=== PATIENT | female | born 1990 | race Caucasian/White ===

== ENCOUNTER → 2019-02-08 | Outpatient (CLI) | payer SELFPAY ==
--- NOTE | 2019-02-08 13:30 | Diagnostic Imaging Report ---
INDICATION: Positive rheumatoid factor. COMPARISON: None. FINDINGS: Three radiographic views of each foot were obtained. No acute fracture or dislocation is identified. Joint spaces are maintained. Note is made of mild to moderate-sized areas of periarticular erosions involving the distal fourth and fifth left metatarsals. Erosion of the distal fifth metatarsal primarily involves the lateral margins. There is a smaller erosion involving the medial margins of the distal fourth metatarsal. No distinct osseous erosions of the right foot are identified. No unexpected radiopaque foreign bodies are seen. IMPRESSION: 1. Multiple periarticular erosions involving the distal margins of the fourth and fifth metatarsals on the left. Findings can be seen with underlying rheumatoid arthritis. 2. No evidence of acute fracture or dislocation of either foot. Dictated by: Dictated on workstation # [id number]
--- NOTE | 2019-02-08 13:31 | Diagnostic Imaging Report ---
INDICATION: Positive rheumatoid factor. Arthritis. COMPARISON: None. FINDINGS: Multiple radiographic views of the bilateral hands were obtained and show no fractures, dislocations, or other acute bony abnormalities. No focal osseous erosions are identified. Joint spaces are well maintained throughout. The soft tissues appear unremarkable. No radiopaque foreign bodies are identified. IMPRESSION: Unremarkable radiographic exam of the bilateral hands. Dictated by: Dictated on workstation # [id number]
== END ==
LOC: RAD FS 11:48
PROVIDERS: ATTEND Internal Medicine Rheumatology
DX: M05.741 Rheumatoid arthritis with rheumatoid factor of right hand without organ or systems involvement (principal); M05.742 Rheumatoid arthritis with rheumatoid factor of left hand without organ or systems involvement

== ENCOUNTER 2019-06-30 07:26 | Emergency (ER) | payer SELFPAY ==
[~2019-06-30] VITALS: Ht 177.8 cm; Wt 48.7 kg
[2019-06-30 07:46] LABS: CLARITY,URINE CLEAR; COLOR,URINE YELLOW; PH,URINE 8.5 (5-9)
[2019-06-30 07:47] LABS: BILIRUBIN,URINE NEGATIVE (NEGATIVE); GLUCOSE, URINE (UA) NEGATIVE (NEGATIVE); KETONES,URINE 1+ (NEGATIVE); LEUKOCYTE ESTERASE ,URINE NEGATIVE (NEGATIVE); NITRITE,URINE NEGATIVE (NEGATIVE); PROTEIN,URINE NEGATIVE (NEGATIVE)
[2019-06-30] MEDS ORDERED: NS IV 1000 ML 1,000 ML IV STA (07:50)
--- NOTE | 2019-06-30 08:01 | ED General ---
General Chief Complaint: General Problems/Pain Stated Complaint: NAUSEA Source of Information: Patient Exam Limitations: No Limitations, Other (profound weakness) History of Present Illness Date Seen by Provider: Jun 30, 2019 Time Seen by Provider: 07:41 Initial Comments 29-year-old female presents with profound weakness over the past 3 days. She was seen [address] Young who identified that she was negative for strep mono influenza. Patient states that she has a history of rheumatoid arthritis and has been treated with Enbrel 50 mg weekly. She is aware that this would make her im munocompromised. Patient admits to fatigue chills diaphoresis tender nodes in her anterior cervical chain postnasal drip nausea. She has fevers and sweats for the past 3 days. Patient is not on test. He lives a home with her and child everyone had a mild gastroenteritis recently. Patient admits to intermittent cough that is nonproductive. She has no skin rash she has a mild headache but no increased pain with neck flexion or knee and hip flexion. Patient has given informed consent for diagnostic and therapeutic services. Patient has given informed consent for IV hydration. Given the negative urine test patient will have chest x-ray PAL. She does have some congestion in her left chest. Timing/Duration: 4-5 Days Severity: Moderate Modifying Factors: improves with Medication (Enbrel 50 mg weekly) Associated Systoms: Cough, Diaphoresis, Fever/Chills, Headaches, Malaise, Nausea/Vomiting, Weakness Allergies and Home Medications Allergies Coded Allergies: No Known Drug Allergies (Unverified , 06/30/19) Home Medications Azithromycin 250 Mg Tablet, 250 MG PO DAILY Prescribed by: BERTHA KENDALL on 06/30/19 0999 Patient Home Medication List Home Medication List Reviewed: Yes Review of Systems Review of Systems Constitutional: chills, diaphoresis, fever, malaise, weakness, weight loss EENTM: ear pain, nose congestion Respiratory: cough Cardiovascular: other (weakness and diaphoresis) Gastrointestinal: nausea, vomiting Genitourinary: no symptoms reported : No Musculoskeletal: muscle weakness Skin: no symptoms reported Psychiatric/Neurological: Weakness Hematologic/Lymphatic: Swollen Glands (anterior cervical chain) Immunological/Allergic: see HPI (she does have rheumatoid arthritis and is treated with Enbrel 50 mg weekly) Past Fxnxfol-Yeiigu-Gmyplo Hx Patient Social History Recreational Drug Use: No Recent Foreign Travel: No Past Medical History Respiratory: No (but is on Enbrel 50 mg weekly) Currently Using CPAP: No Currently Using BIPAP: No Cardiac: No Neurological: No : No Genitourinary: No Gastrointestinal: No Rheumatoid Arthritis (and currently takes Enbrel 50 mg weekly) Endocrine: No Are Your Blood Sugars Over 250: No HEENT: No Loss of Vision: Denies Hearing Impairment: Denies Psychosocial: No Integumentary: No Blood Disorders: No Adverse Reaction/Blood Tranf: No Family Medical History Reviewed Nursing Family Hx Physical Exam Vital Signs Vital Signs - First Documented 06/30/19 07:34 Temp 36.7 Pulse 93 Resp 18 B/P (MAP) 119/77 (91) Pulse Ox 100 O2 Delivery Room Air Capillary Refill : Height, Weight, BMI Height: '" Weight: lbs. oz. kg; BMI Method: General Appearance: Moderate Distress (appears dehydrated has lost 3 pounds from her THIN 110 pound frame she is 5 foot 10 inches tall now weighs 107 actual weight in the ER with clothes on) Eyes: Bilateral Eye Normal Inspection, Bilateral Eye PERRL, Bilateral Eye EOMI HEENT: PERRL/EOMI, TMs Normal, Normal ENT Inspection, Pharyngeal Erythema, Other (cobblestone pharynx) Neck: Full Range of Motion, Normal Inspection, Lymphadenopathy (R) (anterior cervical chain) Respiratory: Chest Non Tender, No Accessory Muscle Use, No Respiratory Distress, Crackles (left anterior and lateral chest), Other (chest x-ray was essentially negative. EKG shows some atrial enlargement clinical examination has inspiratory rales in the left anterior and lateral chest patient has a leukocytosis of 16,001+ ketones and has been on Enbrel 50 mg weekly. I believe that she has early pneumonia and has influenza B. Patient has agreed to azithromycin IV fluids and injection. Follow-up with continued oral azithromycin and she will follow-up with Dr. Young) Cardiovascular: Regular Rate, Rhythm, No Edema, No Gallop, No JVD, No Murmur, Normal Peripheral Pulses Gastrointestinal: Normal Bowel Sounds, No Organomegaly, No Pulsatile Mass, Non Tender, Soft Back: Normal Inspection, No CVA Tenderness, No Vertebral Tenderness Extremity: Normal Capillary Refill, Normal Inspection, Normal Range of Motion, Non Tender, No Calf Tenderness Neurologic/Psychiatric: Alert, Oriented x3, No Motor/Sensory Deficits, Normal Mood/Affect (but admits to progressive weakness), horseshoer II-XII Norm as Tested, Other (admits to progressive weakness) Skin: Normal Color, Warm/Dry Lymphatic: Other (minimal right anterior cervical chain enlargement and tenderness) Focused Exam Lactate Level 06/30/19 08:00: Lactic Acid Level 0.84 Lactic Acid Level Laboratory Tests Test 06/30/19 08:00 Lactic Acid Level 0.84 MMOL/L (0.50-2.00) Progress/Results/Core Measures Suspected Sepsis SIRS Temperature: Pulse: Respiratory Rate: Laboratory Tests 06/30/19 07:55: White Blood Count 16.6H Blood Pressure / Mean: 06/30/19 08:00: Lactic Acid Level 0.84 Laboratory Tests 06/30/19 07:55: Creatinine 0.57L, Platelet Count 294, Total Bilirubin 0.8 Results/Orders Lab Results Laboratory Tests Test 06/30/19 07:30 06/30/19 07:55 06/30/19 08:00 06/30/19 08:12 Range/Units Urine Color YELLOW Urine Clarity CLEAR Urine pH 8.5 5-9 Urine Specific [place] 1.020 1.016-1.022 Urine Protein NEGATIVE NEGATIVE Urine Glucose (UA) NEGATIVE NEGATIVE Urine Ketones 1+ H NEGATIVE Urine Nitrite NEGATIVE NEGATIVE Urine Bilirubin NEGATIVE NEGATIVE Urine Urobilinogen 0.2 < = 1.0 MG/DL Urine Leukocyte Esterase NEGATIVE NEGATIVE Urine RBC (Auto) NEGATIVE NEGATIVE Urine RBC NONE /HPF Urine WBC NONE /HPF Urine Squamous Epithelial Cells 2-5 /HPF Urine Crystals NONE /LPF Urine Bacteria NONE /HPF Urine Casts NONE /LPF Urine Mucus TRACE /LPF Urine Culture Indicated NO White Blood Count 16.6 H 4.3-11.0 10^3/uL Red Blood Count 4.49 4.35-5.85 10^6/uL Hemoglobin 12.9 11.5-16.0 G/DL Hematocrit 39 35-52 % Mean Corpuscular Volume 87 80-99 FL Mean Corpuscular Hemoglobin 29 25-34 PG Mean Corpuscular Hemoglobin Concent 33 32-36 G/DL Red Cell Distribution Width 12.1 10.0-14.5 % Platelet Count 294 130-400 10^3/uL Mean Platelet Volume 9.0 7.4-10.4 FL Neutrophils (%) (Auto) 73 42-75 % Lymphocytes (%) (Auto) 15 12-44 % Monocytes (%) (Auto) 11 0-12 % Eosinophils (%) (Auto) 0 0-10 % Basophils (%) (Auto) 0 0-10 % Neutrophils # (Auto) 12.0 H 1.8-7.8 X 10^3 Lymphocytes # (Auto) 2.5 1.0-4.0 X 10^3 Monocytes # (Auto) 1.8 H 0.0-1.0 X 10^3 Eosinophils # (Auto) 0.0 0.0-0.3 10^3/uL Basophils # (Auto) 0.1 0.0-0.1 10^3/uL Neutrophils % (Manual) 68 % Lymphocytes % (Manual) 22 % Monocytes % (Manual) 6 % Eosinophils % (Manual) 0 % Basophils % (Manual) 0 % Band Neutrophils 4 % Blood Morphology Comment NORMAL Sodium Level 136 135-145 MMOL/L Potassium Level 4.2 3.6-5.0 MMOL/L Chloride Level 99 98-107 MMOL/L Carbon Dioxide Level 22 21-32 MMOL/L Anion Gap 15 H 5-14 MMOL/L Blood Urea Nitrogen 12 7-18 MG/DL Creatinine 0.57 L 0.60-1.30 MG/DL Estimat Glomerular Filtration Rate > 60 BUN/Creatinine Ratio 21 Glucose Level 81 70-105 MG/DL Calcium Level 9.7 8.5-10.1 MG/DL Corrected Calcium 9.5 8.5-10.1 MG/DL Magnesium Level 2.2 1.6-2.4 MG/DL Total Bilirubin 0.8 0.1-1.0 MG/DL Aspartate Amino Transf (AST/SGOT) 28 5-34 U/L Alanine Aminotransferase (ALT/SGPT) 32 0-55 U/L Alkaline Phosphatase 147 H 40-136 U/L Total Protein 8.0 6.4-8.2 GM/DL Albumin 4.3 3.2-4.5 GM/DL Monoscreen NEGATIVE NEGATIVE Lactic Acid Level 0.84 0.50-2.00 MMOL/L Group A Streptococcus Screen NEGATIVE NEGATIVE Micro Results Microbiology 06/30/19 Influenza Types A,B Antigen (ROYCE) - Final, Complete My Orders Orders - BERTHA KENDALL DO Urinalysis (06/30/19 07:30) Urine Bedside (06/30/19 07:30) Chest Pa/Lat (2 View) (06/30/19 07:50) Cbc And Manual Diff (06/30/19 07:50) Comprehensive Metabolic Panel (06/30/19 07:50) Influenza A And B Antigens (06/30/19 07:50) Lactic Acid Analyzer (06/30/19 07:50) Blood Culture (06/30/19 07:50) Magnesium (06/30/19 07:50) Ns Iv 1000 Ml (Sodium Chloride 0.9%) (06/30/19 07:50) Rapid Strep A Screen (06/30/19 08:01) Duran Spencer Virus Profile (06/30/19 08:05) Ekg Tracing (06/30/19 08:05) Monotest (06/30/19 08:27) Azithromycin Injection (Zithromax Inject (06/30/19 08:49) Vital Signs/I&O 06/30/19 07:34 Temp 36.7 Pulse 93 Resp 18 B/P (MAP) 119/77 (91) Pulse Ox 100 O2 Delivery Room Air Capillary Refill : Progress Note : Time: 09:09 Progress Note As above patient is being treated empirically for early pneumonia left chest. Patient has been on Enbrel 50 mg weekly she has influenza B has shaking chills and a leukocytosis of 16.6 thousand with a left shift. Azithromycin 500 mg IV has been started and she will continue on azithromycin 250 daily for the next 6 days. Follow-up with Dr. Young Departure Impression Primary Impression: Influenza B Additional Impressions: Rheumatoid arthritis Immunocompromised Pneumonia and influenza Disposition: 01 HOME, SELF-CARE Condition: Stable Departure-Patient Inst. Referrals: MARISOL YOUNG MD (PCP/Family) Primary Care Physician Patient Instructions: Pneumonia, Adult (DC), Rheumatoid Arthritis (DC), VIRAL SYNDROME Add. Discharge Instructions: Patient has influenza B and clinical presentation of left lobe pneumonia. She is dehydrated and was given IV fluids and azithromycin 500 mg IV piggyback. Patient will continue on azithromycin 250 per day follow-up with Dr. Young. She may take acetaminophen for fever and discomfort but she must stay hydrated. Patient understands that if she becomes more ill short of breath high fevers significant lethargy and weakness she should return to the emergency room All discharge instructions reviewed with patient and/or family. Voiced understanding. Scripts Azithromycin (Azithromycin) 250 Mg Tablet 250 MG PO DAILY for 6 Days, #6 TAB 0 Refills Prov: BERTHA KENDALL DO 06/30/19 Work/School Note: Work Release Form Date Seen in the Emergency Department: Jun 30, 2019 Return to Work: Jul 04, 2019 Restrictions: Return-No Fever (24hrs) Other Restrictions Listed Below: She has influenza B and pneumonia she needs to be without fever for 24H Restrictions: Must be without fever for 24 hours before work Patient will follow-up with Dr. Young she needs to stay well hydrated she is on antibiotics she has influenza B and pneumonia Copy Copies To 1: MARISOL YOUNG MD, ANTHONY H DO Jun 30, 2019 08:01
[2019-06-30 08:11] LABS: HEMATOCRIT 39 % (35-52); HEMOGLOBIN 12.9 G/DL (11.5-16.0); LYMPHOCYTES % (AUTO) 15 % (12-44); MEAN CORPUSCULAR HEMOGLOBIN 29 PG (25-34); MEAN CORPUSCULAR HGB CONC 33 G/DL (32-36); MEAN CORPUSCULAR VOLUME 87 FL (80-99); NEUTROPHILS % (AUTO) 73 % (42-75); PLATELET COUNT 294 10^3/uL (130-400); RED CELL DISTRIBUTION WIDTH 12.1 % (10.0-14.5); WHITE BLOOD COUNT 16.6 10^3/uL (4.3-11.0)
[2019-06-30 08:12] LABS: BASOPHILS # (AUTO) 0.1 10^3/uL (0.0-0.1); BASOPHILS % (AUTO) 0 % (0-10); EOSINOPHILS % (AUTO) 0 % (0-10); LYMPHOCYTES # (AUTO) 2.5 X 10^3 (1.0-4.0); MONOCYTES # (AUTO) 1.8 X 10^3 (0.0-1.0); MONOCYTES % (AUTO) 11 % (0-12)
--- NOTE | 2019-06-30 08:17 | Diagnostic Imaging Report ---
Indication: Lymphadenopathy PA and lateral chest Heart size and pulmonary vascularity are normal. Lungs are clear. There are no effusions or pneumothoraces. IMPRESSION: Negative chest Dictated by: Dictated on workstation # [id number]
[2019-06-30 08:22] LABS: ALANINE AMINOTRANSFERASE 32 U/L (0-55); ALBUMIN 4.3 GM/DL (3.2-4.5); ALKALINE PHOSPHATASE 147 U/L (40-136); BILIRUBIN,TOTAL 0.8 MG/DL (0.1-1.0); BUN/CREATININE RATIO 21; CALCIUM 9.7 MG/DL (8.5-10.1); CARBON DIOXIDE 22 MMOL/L (21-32); CHLORIDE 99 MMOL/L (98-107); CREATININE SERUM 0.57 MG/DL (0.60-1.30); GFR ESTIMATED > 60; GLUCOSE 81 MG/DL (70-105); MAGNESIUM 2.2 MG/DL (1.6-2.4); POTASSIUM 4.2 MMOL/L (3.6-5.0); SODIUM 136 MMOL/L (135-145)
[2019-06-30] MEDS ORDERED: AZITHROMYCIN INJECTION 500 MG in NS (IVPB) 250 ML IV STA (08:49)
[2019-06-30 08:52] LABS: BAND NEUTROPHILS 4 %; BASOPHILS % (MANUAL) 0 %; EOSINOPHILS % (MANUAL) 0 %; LYMPHOCYTES % (MANUAL) 22 %; MONOCYTES % (MANUAL) 6 %; NEUTROPHILS % (MANUAL) 68 %; RBC MORPH NORMAL
[2019-06-30] MEDS ORDERED: AZIT250T12 PO (09:15)
[2019-06-30 10:00] VITALS: BP 107/69
== END 2019-06-30 10:00 | disposition home or self-care (01) ==
LOC: EDUNIT# 07:26 → ER FS 07:28
DX: J10.00 Influenza due to other identified influenza virus with unspecified type of pneumonia (principal); M06.9 Rheumatoid arthritis, unspecified; D89.9 Disorder involving the immune mechanism, unspecified
CPT/HCPCS: 36415; 71046; 80053; 81000; 83605; 83735; 84703; 85007; 85027; 86308; 86663; 86664; 86665; 87430; 87804; 93005; 96361; 96365

== ENCOUNTER 2019-09-01 17:48 | Emergency (ER) | payer SELFPAY ==
[~2019-09-01] VITALS: Ht 177.8 cm; Wt 51.5 kg
[~2019-09-01 17:48] MED LIST: AZIT250T12 PO
--- OUTSIDE RECORDS SUMMARY | 2019-09-01 17:55 | XMS REPORT ---
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 [id number] ALLERGIES Substance Reaction Event Type Date Status Claritin Unknown Drug Allergy Aug, Active ENCOUNTERS Encounter Location Date Diagnosis [facility] [id number] [address] [place] [id number] Sep, [address] [address] Aug, TRACIE I (cervical intraepithelial neoplasi a I) N87.[address] [address] Aug, Atypical squamous cells cannot exclude h igh grade squamous intraepithelial lesion on cytologic smear of cervix (ASC-H) R87.[address] [address] Aug, Well woman exam with routine gynecologic al exam Z01.[address] [address] Aug, [address] [address] Jul, [facility] [address] [id number] [address] [place] [id number] Jul, Dental examination Z01.20 [facility] [address] [id number] [address] [place] [id number] Jul, [facility] [address] [id number] [address] [place] [id number] Jun, Caries K02.9 [facility] [address] [id number] [place] [phone] Jun, Oral health maintenance stat us requiring routine preventive dental care K08.9 [facility] [address] [id number] [address] [id number] May, Caries K02.9 and Dental exam ination Z01.20 [facility] [address] [facility] [id number] [place], [place] [address] Dec, IMMUNIZATIONS No Known Immunizations SOCIAL HISTORY Never Assessed REASON FOR VISIT annual exam, Ms. Portillo denies any health concerns today, just needs her annual examination. PLAN OF CARE Activity Details Follow Up 1 Year Reason:Annual Well Wo man Examination VITAL SIGNS MEDICATIONS Medication Instructions Dosage Frequency Start Date End Date Duration S tatus Tri-Sprintec 0.18/0.215/0.25 MG-35 MCG Orally Once a day 1 tablet 24h Aug, 90 days Not-Taking RESULTS No Results PROCEDURES Procedure Date Ordered Result Body Site URINE TEST August 09, 2018 SPECIMEN HANDLING August 09, 2018 INSTRUCTIONS MEDICATIONS ADMINISTERED No Known Medications MEDICAL (GENERAL) HISTORY Type Description Date Surgical History child
--- OUTSIDE RECORDS SUMMARY | 2019-09-01 17:55 | XMS REPORT | Continuity of Care Document ---
Author Organization Unknown Address Unknown Phone Unavailable Allergies There is no data. Medications There is no data. Problems There is no data. Procedures There is no data. Results Test Result Range SUREPATH PAP RFX HPV mRNA E6/E7 - 10:40 CLINICAL INFORMATION: NRG LMP: NRG PREV. PAP: NRG PREV. BX: NRG SOURCE: Endocervix NRG STATEMENT OF ADEQUACY: NRG INTERPRETATION/RESULT: NRG PHOTOGRAPHY PROFESSOR: NRG GENERAL CATEGORIZATION: NRG COMMENT: NRG PATHOLOGIST: NRG COMMENT NRG PATHOLOGY REPORT (TISSUE PAHOLOGY) - 16:28 A SOURCE NRG A GROSS DESCRIPTION NRG A DIAGNOSIS NRG CLINICAL INFORMATION NRG PATHOLOGIST NRG CULTURE, ANAEROBIC AND AEROBIC - 9 11:16 CULTURE, ANAEROBIC BACTERIA W/GRAM STAIN SEE NOTE NRG CULTURE, AEROBIC BACTERIA SEE NOTE NRG CULTURE, VIRAL (HSV W/TYPING) - 09/08/18 11:16 SOURCE: LESION OF BUTTOX NRG HSV CULTURE: NOT ISOLATED NRG CMP - 09/20/18 15:25 GLUCOSE 84 mg/dL 65-139 UREA NITROGEN (BUN) 11 mg/dL 7-25 CREATININE 0.65 mg/dL 0.50-1.10 eGFR NON-AFR. GUINEAN 122 mL/min/1.73m2 > OR = 60 eGFR 141 mL/min/1.73m2 > OR = 60 BUN/CREATININE RATIO NOT APPLICABLE (calc) 6-22 SODIUM 136 mmol/L 135-146 POTASSIUM 3.9 mmol/L 3.5-5.3 CHLORIDE 103 mmol/L 98-110 CARBON DIOXIDE 26 mmol/L 20-32 CALCIUM 9.4 mg/dL 8.6-10.2 PROTEIN, TOTAL 7.3 g/dL 6.1-8.1 ALBUMIN 4.2 g/dL 3.6-5.1 GLOBULIN 3.1 g/dL (calc) 1.9-3.7 ALBUMIN/GLOBULIN RATIO 1.4 (calc) 1.0-2. 5 BILIRUBIN, TOTAL 0.2 mg/dL 0.2-1.2 ALKALINE PHOSPHATASE 109 U/L 33-115 AST 16 U/L 10-30 ALT 8 U/L 6-29 CBC - 09/20/18 15:25 WHITE BLOOD CELL COUNT 8.3 Thousand/uL 3 .8-10.8 RED BLOOD CELL COUNT 3.63 Million/uL 3.8 0-5.10 HEMOGLOBIN 10.9 g/dL 11.7-15.5 HEMATOCRIT 31.5 % 35.0-45.0 MCV 86.8 fL 80.0-100.0 MCH 30.0 pg 27.0-33.0 MCHC 34.6 g/dL 32.0-36.0 RDW 12.3 % 11.0-15.0 PLATELET COUNT 255 Thousand/uL 140-400 MPV 10.1 fL 7.5-12.5 ABSOLUTE NEUTROPHILS 5229 cells/uL 1500- 7800 ABSOLUTE LYMPHOCYTES 2216 cells/uL 850-3 900 ABSOLUTE MONOCYTES 681 cells/uL 200-950 ABSOLUTE EOSINOPHILS 116 cells/uL 15-500 ABSOLUTE BASOPHILS 58 cells/uL 0-200 NEUTROPHILS 63 % NRG LYMPHOCYTES 26.7 % NRG MONOCYTES 8.2 % NRG EOSINOPHILS 1.4 % NRG BASOPHILS 0.7 % NRG ESR/SED RATE - 09/20/18 15:25 SED RATE BY MODIFIED WESTERGREN 38 mm/h < OR = 20 RA (RHEUMATOID) FACTOR - 09/20/18 15:25 RHEUMATOID FACTOR 81 IU/mL <14 LILIANA - 09/20/18 15:25 LILIANA SCREEN, IFA NEGATIVE NEGATIVE VITAMIN B12 - 09/20/18 15:25 VITAMIN B12 628 pg/mL 200-1100 SUREPATH PAP RFX HPV mRNA E6/E7 - 09:01 CLINICAL INFORMATION: None given NRG LMP: NONE GIVEN NRG PREV. PAP: NONE GIVEN NRG PREV. BX: NONE GIVEN NRG SOURCE: Endocervix NRG STATEMENT OF ADEQUACY: NR INTERPRETATION/RESULT: [facility] PHOTOGRAPHY PROFESSOR: CAITLIN PATHOLOGIST: NR COMMENT NRG GC/CHLAMYDIA (SWAB OR URINE)-RAPID - 09:28 CHLAMYDIA TRACHOMATIS RNA, TMA NOT DETECTED NOT DETECTED NEISSERIA GONORRHOEAE RNA, TMA NOT DETECTED NOT DETECTED COMMENT NRG CMP - 12/13/18 14:26 GLUCOSE 79 mg/dL 65-139 UREA NITROGEN (BUN) 17 mg/dL 7-25 CREATININE 0.58 mg/dL 0.50-1.10 eGFR NON-AFR. GUINEAN 126 mL/min/1.73m2 > OR = 60 eGFR 146 mL/min/1.73m2 > OR = 60 BUN/CREATININE RATIO NOT APPLICABLE (calc) 6-22 SODIUM 140 mmol/L 135-146 POTASSIUM 4.1 mmol/L 3.5-5.3 CHLORIDE 105 mmol/L 98-110 CARBON DIOXIDE 26 mmol/L 20-32 CALCIUM 9.2 mg/dL 8.6-10.2 PROTEIN, TOTAL 7.0 g/dL 6.1-8.1 ALBUMIN 4.3 g/dL 3.6-5.1 GLOBULIN 2.7 g/dL (calc) 1.9-3.7 ALBUMIN/GLOBULIN RATIO 1.6 (calc) 1.0-2. 5 BILIRUBIN, TOTAL 0.4 mg/dL 0.2-1.2 ALKALINE PHOSPHATASE 91 U/L 33-115 AST 16 U/L 10-30 ALT 7 U/L 6-29 CBC - 12/13/18 14:26 WHITE BLOOD CELL COUNT 7.2 Thousand/uL 3 .8-10.8 RED BLOOD CELL COUNT 3.73 Million/uL 3.8 0-5.10 HEMOGLOBIN 10.8 g/dL 11.7-15.5 HEMATOCRIT 32.6 % 35.0-45.0 MCV 87.4 fL 80.0-100.0 MCH 29.0 pg 27.0-33.0 MCHC 33.1 g/dL 32.0-36.0 RDW 12.8 % 11.0-15.0 PLATELET COUNT 253 Thousand/uL 140-400 MPV 10.1 fL 7.5-12.5 ABSOLUTE NEUTROPHILS 4349 cells/uL 1500- 7800 ABSOLUTE LYMPHOCYTES 2102 cells/uL 850-3 900 ABSOLUTE MONOCYTES 641 cells/uL 200-950 ABSOLUTE EOSINOPHILS 58 cells/uL 15-500 ABSOLUTE BASOPHILS 50 cells/uL 0-200 NEUTROPHILS 60.4 % NRG LYMPHOCYTES 29.2 % NRG MONOCYTES 8.9 % NRG EOSINOPHILS 0.8 % NRG BASOPHILS 0.7 % NRG CMP - 01/12/19 15:05 GLUCOSE 83 mg/dL 65-99 UREA NITROGEN (BUN) 15 mg/dL 7-25 CREATININE 0.59 mg/dL 0.50-1.10 eGFR NON-AFR. GUINEAN 126 mL/min/1.73m2 > OR = 60 eGFR 146 mL/min/1.73m2 > OR = 60 BUN/CREATININE RATIO NOT APPLICABLE (calc) 6-22 SODIUM 137 mmol/L 135-146 POTASSIUM 3.8 mmol/L 3.5-5.3 CHLORIDE 103 mmol/L 98-110 CARBON DIOXIDE 26 mmol/L 20-32 CALCIUM 9.6 mg/dL 8.6-10.2 PROTEIN, TOTAL 7.4 g/dL 6.1-8.1 ALBUMIN 4.3 g/dL 3.6-5.1 GLOBULIN 3.1 g/dL (calc) 1.9-3.7 ALBUMIN/GLOBULIN RATIO 1.4 (calc) 1.0-2. 5 BILIRUBIN, TOTAL 0.3 mg/dL 0.2-1.2 ALKALINE PHOSPHATASE 88 U/L 33-115 AST 16 U/L 10-30 ALT 8 U/L 6-29 HEP C ANTIBODY - 02/08/19 11:30 HEPATITIS C ANTIBODY NON-REACTIVE NON-R EACTIVE SIGNAL TO CUT-OFF 0.27 <1.00 QUANTIFERON(R)-TB GOLD PLUS, 1 TUBE - 11:30 QUANTIFERON(R)-TB GOLD PLUS, 1 TUBE NEGATIVE NEGATIVE NIL 0.02 IU/mL NRG MITOGEN-NIL 9.91 IU/mL NRG TB1-NIL 0.01 IU/mL NRG TB2-NIL 0.01 IU/mL NRG ESR/SED RATE - 03/13/19 14:28 SED RATE BY MODIFIED WESTERGREN 17 mm/h < OR = 20 CRP - 03/13/19 14:28 C-REACTIVE PROTEIN 2.8 mg/L <8.0 ESR/SED RATE - 08/02/19 15:23 SED RATE BY MODIFIED WESTERGREN 9 mm/h < OR = 20 CRP - 08/02/19 15:23 C-REACTIVE PROTEIN 1.8 mg/L <8.0 Encounters ACCT No. Visit Date/Time Discharge Status Pt. Type Provider Facility Loc./Unit Complaint [id number] 08/02/2019 15:00:00 08/02/2019 23:59:5 9 [facility] Out[facility] [id number] 08/02/2019 15:00:00 Document Registration [id number] 03/13/2019 14:30:00 Document Registration [id number] 02/08/2019 14:00:00 Document Registration [id number] 01/12/2019 15:00:00 Document Registration [id number] 12/13/2018 14:30:00 Document Registration [id number] 11/30/2018 09:00:00 Document Registration [id number] 11/16/2018 09:15:00 Document Registration [id number] 09/20/2018 15:00:00 Document Registration [id number] 09/08/2018 09:20:00 Document Registration [id number] 08/18/2018 15:45:00 Document Registration [id number] 08/09/2018 09:45:00 Document Registration
--- OUTSIDE RECORDS SUMMARY | 2019-09-01 17:55 | XMS REPORT ---
Author Author Ashia MONTAÑO Organization [facility] Address [address] [place] [address] Care Team Providers Care Used Car Renovator Name Role Phone PINA MONTAÑO Unavailable PROBLEMS Type Condition ICD9-CM Code [id number] Code Onset Dates Condition S tatus SNOMED Code Problem Atypical squamous cells of u ndetermined significance on cytologic smear of cervix (ASC-US) R87.610 Nov, Active 389065925 Problem Well female exam with routine gynecological exam Z01.419 Apr, Active [id number] Problem Moderate single current episode of major depressive di sorder F32.1 Nov, Active 54596265 Problem Rheumatoid arthritis of left hand without organ or system involvement with positive rheumatoid factor M05.742 Active 040255110 Problem Dental caries K02.9 Mar, Active 809 50289 Problem Rheumatoid arthritis with rh eumatoid factor of right hand without organ or systems involvement M05.741 Active 39187 7001 Problem Viral gastroenteritis A08.4 Mar, Activ e 756291425 Problem TRACIE I (cervical intraepithelial neoplasia I) N87.0 Active 610975444 Problem Moderate episode of recurrent major depressive disorder F33.1 Active 231398288 Problem Rheumatoid arthritis involvi ng multiple sites, unspecified rheumatoid factor presence M06.9 Active 974678673 Problem Seasonal allergic rhinitis due to other allergic trigger J30.89 Active 245237062 ALLERGIES Substance Reaction Event Type Date Status Claritin Unknown Drug Allergy Aug, Active ENCOUNTERS Encounter Location Date Diagnosis [address] [address] Jan, Rheumatoid arthritis with rheumatoid fac tor of right hand without organ or systems involvement M05.[address] [address] Jan, Rheumatoid arthritis with rheumatoid fac tor of right hand without organ or systems involvement M05.[address] [address] Dec, Rheumatoid arthritis with rheumatoid fac tor of right hand without organ or systems involvement M05.[address] [address] Dec, Rheumatoid arthritis with rheumatoid fac tor of right hand without organ or systems involvement M05.741 [facility] [address] [facility] [id number] [address] [place] [phone] Dec, Dental examination Z01.[address] [address] Nov, Vaginal itching N89.8 and Trichomonas va ginitis A59.[address] [address] Nov, Encounter for repeat Papanicolaou smear of cervix Z12.[address] [address] Nov, Rheumatoid arthritis with rheumatoid fac tor of right hand without organ or systems involvement M05.741 and Rheumatoid arthritis of left hand without organ or system involvement with positive rheumatoid factor M05.742 [facility] [address] [place] [id number] [address] [place] [id number] Nov, Caries K02.9 [facility] [address] [place] [address] October, Seasonal allergic rhinitis due to other allergic trigger J30.89 [facility] [address] [facility] [id number] [address] [place] [id number] October, Caries K02.[address] [address] Sep, Rheumatoid arthritis involving multiple sites, unspecified rheumatoid factor presence M06.9 [facility] [address] [id number] [address] [place] [phone] Sep, Arthralgia, unspecified join t M25.[address] [address] Sep, Arthralgia, unspecified joint M25.50 and Moderate episode of recurrent major depressive disorder F33.1 [facility] [address] [id number] [address] [place] [address] [phone] Sep, Caries K02.[address] [address] Sep, Abscess L02.[address] [address] Sep, Abscess L02.[address] [address] Aug, TRACIE I (cervical intraepithelial neoplasi a I) N87.[address] [address] Aug, Atypical squamous cells cannot exclude h igh grade squamous intraepithelial lesion on cytologic smear of cervix (ASC-H) R87.[address] [address] Aug, Well woman exam with routine gynecologic al exam Z01.[address] [address] Aug, [address] [address] Jul, [facility] [address] [facility] [id number] [address] [place] [phone] Jul, Dental examination Z01.20 [facility] [address] [id number] [address] [place] [phone] Jul, [facility] [address] [id number] [address] [place] [id number] Jun, Caries K02.9 [facility] [address] [id number] [address] [place] [phone] Jun, Oral health maintenance stat us requiring routine preventive dental care K08.9 [facility] [address] [id number] [address] [place] [phone] May, [facility] [address] [id number] [address] [place] [phone] May, Caries K02.9 and Dental exam ination Z01.20 [facility] [address] [facility] [id number] [address] [address] Mar, [facility] [address] [facility] [id number] [address] [place] [phone] Aug, [facility] [address] [facility] [id number] [address] [place] [phone] Dec, IMMUNIZATIONS No Known Immunizations SOCIAL HISTORY Never Assessed REASON FOR VISIT Cryo, Ms. Portillo presents to our office for a scheduled Cryotherapy to her cervi x secondary to TRACIE 1 on her Colposcopic biopsies. PLAN OF CARE Activity Details Follow Up 3 Months Reason:Repeat Pap S mear VITAL SIGNS MEDICATIONS Medication Instructions Dosage Frequency Start Date End Date Duration S tatus Tri-Sprintec 0.18/0.215/0.25 MG-35 MCG Orally Once a day 1 tablet 24h Aug, 90 days Unknown RESULTS No Results PROCEDURES Procedure Date Ordered Result Body Site CRYOCAUTERY OF CERVIX August 25, 2018 INSTRUCTIONS MEDICATIONS ADMINISTERED No Known Medications MEDICAL (GENERAL) HISTORY Type Description Date Medical History anxiety Medical History depression Medical History rheumatoid arthritis Surgical History tonsils removed as a child Hospitalization History child Hospitalization History during for dehydration
--- OUTSIDE RECORDS SUMMARY | 2019-09-01 17:55 | XMS REPORT ---
Author Author Ashia MONTAÑO Organization [facility] Address [address] [place] [address] Care Team Providers [facility] Representative Name Role Phone PINA MONTAÑO Unavailable PROBLEMS Type Condition ICD9-CM Code [id number] Code Onset Dates Condition S tatus SNOMED Code Problem Atypical squamous cells of u ndetermined significance on cytologic smear of cervix (ASC-US) R87.610 Nov, Active 355197113 Problem Well female exam with routine gynecological exam Z01.419 Apr, Active 628073568362298 Problem Moderate single current episode of major depressive di sorder F32.1 Nov, Active 92070968 Problem Rheumatoid arthritis of left hand without organ or system involvement with positive rheumatoid factor M05.742 Active 451763739 Problem Dental caries K02.9 Mar, Active 809 26496 Problem Rheumatoid arthritis with rh eumatoid factor of right hand without organ or systems involvement M05.741 Active 25274 7001 Problem Viral gastroenteritis A08.4 Mar, Activ e 062232103 Problem TRACIE I (cervical intraepithelial neoplasia I) N87.0 Active 053093966 Problem Moderate episode of recurrent major depressive disorder F33.1 Active 864114424 Problem Rheumatoid arthritis involvi ng multiple sites, unspecified rheumatoid factor presence M06.9 Active 270002286 Problem Seasonal allergic rhinitis due to other allergic trigger J30.89 Active 374161522 ALLERGIES Substance Reaction Event Type Date Status Claritin Unknown Drug Allergy Aug, Active ENCOUNTERS Encounter Location Date Diagnosis [address] [address] Dec, [facility] [address] [facility] [id number] [address] [place] [id number] Dec, [address] [address] 26 [place], 2019 Vaginal itching N89.8 and Trichomonas va ginitis A59.[address] [address] Nov, Encounter for repeat Papanicolaou smear of cervix Z12.[address] [address] Nov, Rheumatoid arthritis with rheumatoid fac tor of right hand without organ or systems involvement M05.741 and Rheumatoid arthritis of left hand without organ or system involvement with positive rheumatoid factor M05.742 [facility] [address] [facility] [id number] [address] [id number] Nov, Caries K02.9 [facility] [address] [place] [address] October, Seasonal allergic rhinitis due to other allergic trigger J30.89 [facility] [address] [facility] [id number] [address] [place] [id number] October, Caries K02.[address] [address] Sep, Rheumatoid arthritis involving multiple sites, unspecified rheumatoid factor presence M06.9 [facility] [address] [id number] [place] [address] Sep, Arthralgia, unspecified join t M25.[address] [address] Sep, Arthralgia, unspecified joint M25.50 and Moderate episode of recurrent major depressive disorder F33.1 [facility] [address] [facility] [id number] [address] [place] [phone] Sep, Caries K02.[address] [address] Sep, Abscess L02.[address] [address] Sep, Abscess L02.[address] [address] Aug, TRACIE I (cervical intraepithelial neoplasi a I) N87.[address] [address] Aug, Atypical squamous cells cannot exclude h igh grade squamous intraepithelial lesion on cytologic smear of cervix (ASC-H) R87.[address] [address] Aug, Well woman exam with routine gynecologic al exam Z01.[address] [place] [address] Aug, [address] [address] Jul, [facility] [address] [id number] [address] [place] [phone] Jul, Dental examination Z01.20 [facility] [address] [id number] [address] [place] [phone] Jul, [facility] [address] [id number] [address] [place] [id number] Jun, Caries K02.9 [facility] [address] [id number] [address] [place] [phone] Jun, Oral health maintenance stat us requiring routine preventive dental care K08.9 [facility] [address] [id number] [address] [place] [phone] May, [facility] [address] [id number] [address] [place] [phone] May, Caries K02.9 and Dental exam ination Z01.20 [facility] [address] [id number] [address] [place] [phone] Mar, [facility] [address] [id number] [address] [place] [phone] Aug, [facility] [address] [id number] [address] [place] [phone] Dec, IMMUNIZATIONS No Known Immunizations SOCIAL HISTORY Never Assessed REASON FOR VISIT Colposcopy, Ms. Portillo presents to our office for her scheduled Colposcopy for a n Abnormal Pap Smear (LGSIL). She denies any other health concerns today. PLAN OF CARE Activity Details Follow Up 1 Week Reason:Test results Future/Pending Procedure COLPOSCOPY VITAL SIGNS MEDICATIONS Medication Instructions Dosage Frequency Start Date End Date Duration S marco Tri-Sprintec 0.18/0.215/0.25 MG-35 MCG Orally Once a day 1 tablet 24h Aug, 90 days Unknown RESULTS No Results PROCEDURES Procedure Date Ordered Result Body Site BX/CURETT OF CERVIX W/SCOPE August 18, 2018 EXPLORATION OF VAGINA August 18, 2018 EXAM OF CERVIX W/SCOPE August 18, 2018 INSTRUCTIONS MEDICATIONS ADMINISTERED No Known Medications MEDICAL (GENERAL) HISTORY Type Description Date Medical History anxiety Medical History depression Medical History rheumatoid arthritis Surgical History tonsils removed as a child Hospitalization History child Hospitalization History during for dehydration
[2019-09-01] MEDS ORDERED: NS IV 1000 ML 1,000 ML IV SCH (18:15)
[2019-09-01] MEDS ORDERED: HYDROmorphone 2 MG/ML VIAL (DILAUDID) IV ONE ×2 (18:15→20:00)
--- NOTE | 2019-09-01 18:16 | ED Abdominal Pain ---
General Chief Complaint: Abdominal/GI Problems Stated Complaint: RT FLANK PAIN Source of Information: Patient Exam Limitations: No Limitations (but has severe pain) History of Present Illness Date Seen by Provider: Sep 01, 2019 Time Seen by Provider: 18:01 Initial Comments 29-year-old female presents for evaluation of severe right flank pain. Patient states the pain is been getting worse over the past day. Is now intense and severe. She has never had kidney stones in the past denies any trauma. Patient does have rheumatoid arthritis and has been on Humira for the past 7 years. She has felt nauseated because of the pain. She denies any history of cardiovascular pulmonary renal or GI disease. Patient has given informed consent for diagnostic and therapeutic services. Her last menstrual period was one week ago she is not using any contraception but just completed her menses. Patient understands CT scan of the abdomen and pelvis is being done after test was completed. Patient has not had any significant travel and has been inside the [facility] for the past 2 weeks. She has not been around anyone who she knows is sick and has been a consistent effort to socially distance herself and has not been around anyone who has been ill. Timing/Duration: 12 Hours (gradual onset with intense pain at this time) Severity/Quality: Severe, Sharp, Stabbing Location: RLQ, Flank Radiation: RLQ, Flank Activities at Onset: Activity Modifying Factors: Improves With Breathing, Improves With Coughing, Improves With Movement Associated Symptoms: Back Pain, Nausea/Vomiting Allergies and Home Medications Allergies Coded Allergies: No Known Drug Allergies (Unverified , 06/30/19) Patient Home Medication List Home Medication List Reviewed: Yes Review of Systems Review of Systems Constitutional: see HPI, malaise, weakness, other (severe right flank pain) EENTM: No Symptoms Reported Respiratory: Other (wincing pain makes it difficult to breathe Deeply) Gastrointestinal: Abdominal Pain, Nausea, Vomiting, Other (severe right flank pain) Genitourinary: See HPI, Flank Pain, Other (just completed menses this week) Musculoskeletal: back pain, joint pain (history of rheumatoid arthritis), joint swelling (history of rheumatoid arthritis), muscle stiffness Skin: no symptoms reported Psychiatric/Neurological: Anxiety, Tremors (from severe spasms of pain) Endocrine: No Symptoms Reported Hematologic/Lymphatic: No Symptoms Reported Past Quymopo-Hqwzln-Jyhfqv Hx Past Med/Social Hx: Reviewed Nursing Past Med/Soc Hx Patient Social History 2nd Hand Smoke Exposure: No Recent Foreign Travel: No Contact w/Someone Who Travel: No Recent Hopitalizations: No Seasonal Allergies Seasonal Allergies: No Past Medical History Surgeries: Yes Tonsillectomy Respiratory: No (but is on Enbrel 50 mg weekly) Currently Using CPAP: No Currently Using BIPAP: No Cardiac: No Neurological: No Genitourinary: No Gastrointestinal: No Musculoskeletal: Yes Rheumatoid Arthritis Endocrine: No HEENT: No Loss of Vision: Denies Hearing Impairment: Denies Cancer: No Psychosocial: No Integumentary: No Blood Disorders: No Adverse Reaction/Blood Tranf: No Physical Exam Vital Signs Vital Signs - First Documented 09/01/19 17:50 Temp 36.0 Pulse 80 Resp 20 B/P (MAP) 122/81 (95) Pulse Ox 100 O2 Delivery Room Air Capillary Refill : Less than 2 seconds Height/Weight/BMI Height: '" Weight: lbs. oz. kg; 15.00 BMI Method: General Appearance: WD/WN (but very thin), severe distress, thin HEENT: PERRL/EOMI, normal ENT inspection, pharynx normal Neck: non-tender, full range of motion, supple, normal inspection Respiratory: chest non-tender, lungs clear, normal breath sounds, no respiratory distress, no accessory muscle use Cardiovascular: regular rate, rhythm, no edema, no gallop, no JVD, no murmur Peripheral Pulses: 2+ Carotid (R), 2+ Carotid (L) Gastrointestinal: soft, no organomegaly, no pulsatile mass, guarding (right flank), tenderness (right flank), other (pain consistent with right ureteral lithiasis) Extremities: normal range of motion, non-tender, normal inspection, no pedal edema, no calf tenderness, normal capillary refill, other (history of rheumatoid arthritis on Humira) Back: CVA tenderness (R) (severe in the right flank no history of trauma) Neurologic/Psychiatric: box blank machine feeder II-XII nml as tested, no motor/sensory deficits, al ert, normal mood/affect, oriented x 3 Skin: normal color, warm/dry Lymphatic: no adenopathy Focused Exam Lactate Level 09/01/19 18:30: Lactic Acid Level 1.06 Lactic Acid Level Laboratory Tests Test 09/01/19 18:30 Lactic Acid Level 1.06 MMOL/L (0.50-2.00) Progress/Results/Core Measures Results/Orders Lab Results Laboratory Tests Test 09/01/19 17:50 09/01/19 18:10 09/01/19 18:30 09/01/19 18:45 Range/Units Urine Test NEGATIVE NEGATIVE White Blood Count 9.1 4.3-11.0 10^3/uL Red Blood Count 4.30 L 4.35-5.85 10^6/uL Hemoglobin 12.5 11.5-16.0 G/DL Hematocrit 37 35-52 % Mean Corpuscular Volume 87 80-99 FL Mean Corpuscular Hemoglobin 29 25-34 PG Mean Corpuscular Hemoglobin Concent 34 32-36 G/DL Red Cell Distribution Width 12.6 10.0-14.5 % Platelet Count 231 130-400 10^3/uL Mean Platelet Volume 9.9 7.4-10.4 FL Neutrophils (%) (Auto) 66 42-75 % Lymphocytes (%) (Auto) 25 12-44 % Monocytes (%) (Auto) 7 0-12 % Eosinophils (%) (Auto) 1 0-10 % Basophils (%) (Auto) 1 0-10 % Neutrophils # (Auto) 6.0 1.8-7.8 X 10^3 Lymphocytes # (Auto) 2.3 1.0-4.0 X 10^3 Monocytes # (Auto) 0.7 0.0-1.0 X 10^3 Eosinophils # (Auto) 0.1 0.0-0.3 10^3/uL Basophils # (Auto) 0.1 0.0-0.1 10^3/uL Neutrophils % (Manual) 60 % Lymphocytes % (Manual) 31 % Monocytes % (Manual) 5 % Eosinophils % (Manual) 3 % Basophils % (Manual) 0 % Band Neutrophils 1 % Blood Morphology Comment NORMAL Sodium Level 141 135-145 MMOL/L Potassium Level 3.3 L 3.6-5.0 MMOL/L Chloride Level 103 98-107 MMOL/L Carbon Dioxide Level 23 21-32 MMOL/L Anion Gap 15 H 5-14 MMOL/L Blood Urea Nitrogen 10 7-18 MG/DL Creatinine 0.68 0.60-1.30 MG/DL Estimat Glomerular Filtration Rate > 60 BUN/Creatinine Ratio 15 Glucose Level 105 70-105 MG/DL Calcium Level 9.5 8.5-10.1 MG/DL Corrected Calcium 8.5-10.1 MG/DL Total Bilirubin 0.3 0.1-1.0 MG/DL Aspartate Amino Transf (AST/SGOT) 21 5-34 U/L Alanine Aminotransferase (ALT/SGPT) 13 0-55 U/L Alkaline Phosphatase 105 40-136 U/L Total Protein 7.6 6.4-8.2 GM/DL Albumin 4.6 H 3.2-4.5 GM/DL Lactic Acid Level 1.06 0.50-2.00 MMOL/L Urine Color YELLOW Urine Clarity CLEAR Urine pH 6.0 5-9 Urine Specific Cleves 1.020 1.016-1.022 Urine Protein 3+ H NEGATIVE Urine Glucose (UA) NEGATIVE NEGATIVE Urine Ketones NEGATIVE NEGATIVE Urine Nitrite NEGATIVE NEGATIVE Urine Bilirubin NEGATIVE NEGATIVE Urine Urobilinogen 0.2 < = 1.0 MG/DL Urine Leukocyte Esterase NEGATIVE NEGATIVE Urine RBC (Auto) TRACE H NEGATIVE Urine RBC 0-2 /HPF Urine WBC NONE /HPF Urine Squamous Epithelial Cells 5-10 /HPF Urine Crystals NONE /LPF Urine Bacteria FEW H /HPF Urine Casts NONE /LPF Urine Mucus NEGATIVE /LPF Urine Culture Indicated NO My Orders Orders - BERTHA KENDALL DO Cbc And Manual Diff (09/01/19 18:08) Comprehensive Metabolic Panel (09/01/19 18:08) Lactic Acid Analyzer (09/01/19 18:08) Urinalysis (09/01/19 18:08) Hcg,Qualitative Urine (09/01/19 18:08) Peripheral Iv Line Care 00,04,08,12,16,20 (09/01/19 18:08) Ns Iv 1000 Ml (Sodium Chloride 0.9%) (09/01/19 18:15) Ct Abd/Pelvis Wo(Kidney Stone) (09/01/19 18:08) Hydromorphone Injection (Dilaudid Inject (09/01/19 18:15) Medications Given in ED Current Medications Medications Dose Ordered Sig/Martinez Route Start Time Stop Time Status Last Admin Dose Admin Hydromorphone HCl 0.5 mg ONCE ONCE IV 09/01/19 18:15 09/01/19 18:16 DC 09/01/19 18:34 0.5 MG Vital Signs/I&O 09/01/19 09/01/19 17:50 18:34 Temp 36.0 36.0 Pulse 80 Resp 20 B/P (MAP) 122/81 (95) Pulse Ox 100 O2 Delivery Room Air Progress Progress Note : Time: 19:[address] scan reveals a obstructing stone 6 mm in the right ureteral vesicular junction with a right hydronephrosis. Patient also has nonobstructing stones in both her left and right urinary tree. CT scan results are as follows: FINDINGS: The heart is unremarkable. The included lung bases are clear. A calculus is seen in the right UVJ measuring 0.6 cm with associated moderate right-sided hydroureteronephrosis. Multiple nonobstructing calculi are seen bilaterally, the largest measuring 2 mm on the right and 3 mm on the left. No hydronephrosis is seen on the left. The urinary bladder is nondistended. The liver, spleen, pancreas, and adrenal glands have a normal appearance. There is no pathologically enlarged mesenteric or retroperitoneal adenopathy. The bowel loops are nondilated. The appendix is visualized in the right lower quadrant and has a normal appearance. There is no free fluid or free air. The osseous structures are age-appropriate. There is no free air, loculated collection, or adenopathy in the pelvis. IMPRESSION: 1. Obstructing calculus in the right UVJ measuring 0.6 cm with associated moderate right-sided hydroureteronephrosis. 2. Bilateral nonobstructing calculi. Patient is aware that she will need to be on analgesics hydration and follow-up with urology. I recommended she see a urologist next week continue to hydrate and strain all urine to identify stone. She should also be in contact with her warehouse checker in regard to her continued use of Humira. Departure Impression Primary Impression: Calculus of kidney Additional Impressions: Abdominal pain Dehydration Disposition: 01 HOME, SELF-CARE Condition: Improved Departure-Patient Inst. Decision time for Depature: 19:40 Referrals: MARISOL YOUNG MD (PCP/Family) Primary Care Physician Patient Instructions: Renal Colic (DC), Kidney Stones in Adults, Dehydration, Adult (DC) Add. Discharge Instructions: Patient has a obstructing right ureteral lithiasis with a hydronephrosis. The stone is at the ureteral vesicular junction patient is to push fluids and analgesic medications have been prescribed. She was given half a milligram of hydromorphone and this will be repeated before going home and oral hydrocodone for pain. Patient will follow up with urology next week and also with Dr. Young All discharge instructions reviewed with patient and/or family. Voiced understanding. Scripts Hydrocodone/Acetaminophen (Hydrocodone-Acetamin 5-325 mg) 1 Each Tablet 1 EACH PO Q6H for Pain for 5 Days, #20 TAB Prov: BERTHA KENDALL DO 09/01/19 Copy Copies To 1: MARISOL YOUNG MD, ANTHONY H DO Sep 01, 2019 18:16
[2019-09-01 18:25] LABS: HEMATOCRIT 37 % (35-52); HEMOGLOBIN 12.5 G/DL (11.5-16.0); MEAN CORPUSCULAR HEMOGLOBIN 29 PG (25-34); WHITE BLOOD COUNT 9.1 10^3/uL (4.3-11.0)
[2019-09-01 18:26] LABS: BASOPHILS # (AUTO) 0.1 10^3/uL (0.0-0.1); BASOPHILS % (AUTO) 1 % (0-10); EOSINOPHILS # (AUTO) 0.1 10^3/uL (0.0-0.3); EOSINOPHILS % (AUTO) 1 % (0-10); LYMPHOCYTES # (AUTO) 2.3 X 10^3 (1.0-4.0); LYMPHOCYTES % (AUTO) 25 % (12-44); MEAN CORPUSCULAR HGB CONC 34 G/DL (32-36); MEAN CORPUSCULAR VOLUME 87 FL (80-99); MEAN PLATELET VOLUME 9.9 FL (7.4-10.4); MONOCYTES # (AUTO) 0.7 X 10^3 (0.0-1.0); MONOCYTES % (AUTO) 7 % (0-12); NEUTROPHILS % (AUTO) 66 % (42-75); PLATELET COUNT 231 10^3/uL (130-400); RED CELL DISTRIBUTION WIDTH 12.6 % (10.0-14.5)
[2019-09-01] MEDS ORDERED: Enbrel (18:49)
[2019-09-01 19:03] LABS: BACTERIA,URINE FEW /HPF; BILIRUBIN,URINE NEGATIVE (NEGATIVE); CLARITY,URINE CLEAR; COLOR,URINE YELLOW; GLUCOSE, URINE (UA) NEGATIVE (NEGATIVE); KETONES,URINE NEGATIVE (NEGATIVE); LEUKOCYTE ESTERASE ,URINE NEGATIVE (NEGATIVE); NITRITE,URINE NEGATIVE (NEGATIVE); PROTEIN,URINE 3+ (NEGATIVE); RBC,URINE 0-2 /HPF
[2019-09-01 19:04] LABS: ALANINE AMINOTRANSFERASE 13 U/L (0-55); ALKALINE PHOSPHATASE 105 U/L (40-136); BAND NEUTROPHILS 1 %; BASOPHILS % (MANUAL) 0 %; BILIRUBIN,TOTAL 0.3 MG/DL (0.1-1.0); BUN/CREATININE RATIO 15; CALCIUM 9.5 MG/DL (8.5-10.1); CARBON DIOXIDE 23 MMOL/L (21-32); CHLORIDE 103 MMOL/L (98-107); CREATININE SERUM 0.68 MG/DL (0.60-1.30); EOSINOPHILS % (MANUAL) 3 %; GFR ESTIMATED > 60; GLUCOSE 105 MG/DL (70-105); LYMPHOCYTES % (MANUAL) 31 %; MONOCYTES % (MANUAL) 5 %; NEUTROPHILS % (MANUAL) 60 %; POTASSIUM 3.3 MMOL/L (3.6-5.0); RBC MORPH NORMAL; SODIUM 141 MMOL/L (135-145)
[2019-09-01 19:05] LABS: ALBUMIN 4.6 GM/DL (3.2-4.5); TOTAL PROTEIN 7.6 GM/DL (6.4-8.2)
--- NOTE | 2019-09-01 19:15 | Diagnostic Imaging Report ---
PROCEDURE: CT urinary tract, rule out kidney stone. TECHNIQUE: Multiple contiguous axial images were obtained through the abdomen and pelvis without the use of intravenous contrast. Auto Exposure Controls were utilized during the CT exam to meet ALARA standards for radiation dose reduction. INDICATION: Right flank pain for one day. Evaluate for renal stones. COMPARISON: None. FINDINGS: The heart is unremarkable. The included lung bases are clear. A calculus is seen in the right UVJ measuring 0.6 cm with associated moderate right-sided hydroureteronephrosis. Multiple nonobstructing calculi are seen bilaterally, the largest measuring 2 mm on the right and 3 mm on the left. No hydronephrosis is seen on the left. The urinary bladder is nondistended. The liver, spleen, pancreas, and adrenal glands have a normal appearance. There is no pathologically enlarged mesenteric or retroperitoneal adenopathy. The bowel loops are nondilated. The appendix is visualized in the right lower quadrant and has a normal appearance. There is no free fluid or free air. The osseous structures are age-appropriate. There is no free air, loculated collection, or adenopathy in the pelvis. IMPRESSION: 1. Obstructing calculus in the right UVJ measuring 0.6 cm with associated moderate right-sided hydroureteronephrosis. 2. Bilateral nonobstructing calculi. Dictated by: Dictated on workstation # [id number]
[2019-09-01] MEDS ORDERED: HYDR-83 PO (19:44)
[2019-09-01 19:56] VITALS: BP 105/63
== END 2019-09-01 19:56 | disposition home or self-care (01) ==
LOC: EDUNIT# 17:48 → ER FS 17:50
DX: N13.6 Pyonephrosis (principal); E86.0 Dehydration
CPT/HCPCS: 36415; 74176; 80053; 81000; 83605; 84703; 85007; 85027; 96361; 96374; 96375

== ENCOUNTER → 2020-12-26 | Outpatient (CLI) | payer BC ==
[~2020-12-26] MED LIST changes: +ACHD5005 PO; +Enbrel
--- NOTE | 2020-12-26 10:54 | Diagnostic Imaging Report ---
INDICATION: survey. No pathological finding at the anatomical survey is revealed, however lie limits interrogation of the ventricular outflow tracts. The nondilated cervix measures a normal 6 cm in length and the caudal tip of the anterior placenta is 3.1 cm separable from the closed internal os. Positioning was variable during the exam including a transversely oriented with the head to the maternal left. The heart rate 144 bpm was regular. Anterior placenta appeared normal with no abruption or previa and there is a normal volume of amniotic fluid. Biometric measurements correlate with an age 21 weeks 0 days for sonographic date of delivery 05/08/2021 the LMP percentile is 71%. TECHNIQUE: Multiple real-time grayscale images were obtained over the gravid uterus. COMPARISON: None FINDINGS: Biometrical measurements are as follows: Biparietal 4.94 cm, age 21 weeks 0 days. Head circumference 19.03 cm, age 21 weeks 3 days. Abdominal circumference 15.93 cm, age 21 weeks 1 days. Femur length 3.27 cm, age 20 weeks 2 days. Sonographic estimate age: 21 weeks 0 days. Sonographic estimated date of delivery: 05/08/2021. Estimated Weight: 374 gm (+/- 55 gm). LMP percentile: 71%. heart rate: 144 beats per minute. number: 1 of 1. IMPRESSION: Variable position Sahu viable IUP. No pathological finding revealed we acknowledge suboptimal interrogation of the ventricular outflow tracts on a positional basis. Dictated by: Dictated on workstation # [id number]
== END ==
LOC: RAD FS 09:05
PROVIDERS: ATTEND Nurse Practitioner Women's Health
DX: Z34.90 Encounter for supervision of normal pregnancy, unspecified, unspecified trimester (principal); Z3A.00 Weeks of gestation of pregnancy not specified
CPT/HCPCS: 76805

== ENCOUNTER 2021-05-05 02:48 | Outpatient (CLI) | payer BC ==
[~2021-05-05] VITALS: Ht 177.8 cm; Wt 61.4 kg
[2021-05-05 03:10] VITALS: BP 112/74
[2021-05-05 03:55] LABS: BILIRUBIN,URINE NEGATIVE (NEGATIVE); CLARITY,URINE CLEAR; COLOR,URINE YELLOW; GLUCOSE, URINE (UA) NEGATIVE (NEGATIVE); KETONES,URINE NEGATIVE (NEGATIVE); LEUKOCYTE ESTERASE ,URINE 2+ (NEGATIVE); NITRITE,URINE NEGATIVE (NEGATIVE); PH,URINE 7.5 (5-9); PROTEIN,URINE NEGATIVE (NEGATIVE)
[2021-05-05 04:02] LABS: BACTERIA,URINE MODERATE /HPF; SQUAMOUS EPITHELIAL CELL,UR 0-2 /HPF
[2021-05-05] MEDS ORDERED: ACETAMINOPHEN 500 MG TAB (TYLENOL) PO ONE (04:45)
[2021-05-05] MEDS ORDERED: CYCLOBENZAPRINE 10 MG (FLEXERIL) TAB PO PRN (04:45)
[2021-05-05] MEDS ORDERED: FERR-84 PO (05:36)
[2021-05-05] MEDS ORDERED: NITR-65 PO ×2 (05:40→05:42)
== END 2021-05-05 05:55 ==
LOC: WSo 02:48 → LDRP 02:48 → WSo 05:55
PROVIDERS: ATTEND Obstetrics & Gynecology
DX: Z34.90 Encounter for supervision of normal pregnancy, unspecified, unspecified trimester (principal); Z3A.00 Weeks of gestation of pregnancy not specified
CPT/HCPCS: 81000; 87088; 99214

== ENCOUNTER 2021-05-07 07:15 | Inpatient (IN) | payer BC ==
[~2021-05-07] VITALS: Ht 177.8 cm; Wt 60.7 kg
[~2021-05-07 07:15] MED LIST changes: +FERR-84 PO; +NITR-65 PO
[2021-05-07 19:35] VITALS: BP 112/77
[2021-05-07] MEDS ORDERED: NS IV 500 ML 500 ML ONE (19:56)
[2021-05-07] MEDS ORDERED: NS IV 500 ML 500 ML IV ONE (20:15)
[2021-05-07] MEDS: D5 LR IV SOLUTION 1,000 ML IV SCH ×2 (20:39→22:41)
[2021-05-07 20:49] LABS: BILIRUBIN,URINE NEGATIVE (NEGATIVE); CLARITY,URINE CLOUDY; COLOR,URINE YELLOW; GLUCOSE, URINE (UA) NEGATIVE (NEGATIVE); KETONES,URINE TRACE (NEGATIVE); LEUKOCYTE ESTERASE ,URINE 2+ (NEGATIVE); NITRITE,URINE NEGATIVE (NEGATIVE); PH,URINE 6.5 (5-9); PROTEIN,URINE NEGATIVE (NEGATIVE)
[2021-05-07] MEDS ORDERED: CITRIC ACID/SOB CIT (BICITRA) 30 ML UDC ONE (21:03)
[2021-05-07 21:04] LABS: AMORPHOUS SEDIMENT,UR FEW AMOR URATES /LPF; BACTERIA,URINE MODERATE /HPF; URIC ACID CRYSTALS,URINE FEW /LPF
[2021-05-07] MEDS ORDERED: FAMOTIDINE 20MG/2ML IV (PEPCID) ONE (21:04)
[2021-05-07] MEDS ORDERED: METOCLOPRAMIDE INJ 10 MG/2 ML (REGLAN) ONE (21:04)
[2021-05-07] MEDS ORDERED: ceFAZolin 2 GM IV Premixed 50 ML ONE (21:04)
[2021-05-07] MEDS ORDERED: TERBUTALINE INJ 1 MG/ML (BRETHINE) AMP ONE (21:08)
[2021-05-07 21:10] VITALS: BP 134/91
[2021-05-07] MEDS ORDERED: TERBUTALINE INJ 1 MG/ML (BRETHINE) AMP SC ONE (21:15)
[2021-05-07 21:19] LABS: BASOPHILS % (AUTO) 0 % (0-10); EOSINOPHILS % (AUTO) 0 % (0-10); HEMATOCRIT 35 % (35-52); HEMOGLOBIN 11.9 g/dL (11.5-16.0); LYMPHOCYTES % (AUTO) 21 % (12-44); MEAN CORPUSCULAR HEMOGLOBIN 31 pg (25-34); MEAN CORPUSCULAR HGB CONC 34 g/dL (32-36); MEAN CORPUSCULAR VOLUME 92 fL (80-99); MEAN PLATELET VOLUME 9.7 fL (9.0-12.2); MONOCYTES % (AUTO) 10 % (0-12); NEUTROPHILS # (AUTO) 6.8 10^3/uL (1.8-7.8); NEUTROPHILS % (AUTO) 68 % (42-75); PLATELET COUNT 245 10^3/uL (130-400); WHITE BLOOD COUNT 9.9 10^3/uL (4.3-11.0)
[2021-05-07] MEDS: CATHETER FLUSH 10 ML SYR IV SCH (21:36)
[2021-05-07 21:40] VITALS: BP 114/57
[2021-05-07] MEDS ORDERED: NIFEdipine 10 MG CAPS (WOMEN'S SERVICES ONLY!!!) PO ONE (21:57)
[2021-05-07] MEDS ORDERED: LACTATED RINGERS 1,000 ML IV ONE (22:03)
[2021-05-07 22:10] VITALS: BP 116/71
[2021-05-07 22:40] VITALS: BP 115/72
[2021-05-07 23:10] VITALS: BP 107/67
[2021-05-08] VITALS (27 sets, daily range): BP systolic 97–139; BP diastolic 61–87
[2021-05-08] MEDS ORDERED: HYDROmorphone 2 MG/ML VIAL (DILAUDID) IV ONE (00:25)
[2021-05-08] MEDS ORDERED: HYDROmorphone 2 MG/ML VIAL (DILAUDID) ONE (00:31)
[2021-05-08] MEDS: CATHETER FLUSH 10 ML SYR IV SCH (06:48)
[2021-05-08] MEDS ORDERED: fentaNYL 2 mcg/ml BUPIVA 0.125 100 ML ONE (07:08)
[2021-05-08] MEDS ORDERED: OXYTOCIN PRE-MIX DRIP 500 ML IV ONE ×2 (07:09→09:14)
[2021-05-08] MEDS ORDERED: fentaNYL INJ 100 MCG/2 ML AMP ONE (07:11)
[2021-05-08] MEDS ORDERED: BUPIVACAINE 0.25% 30 ML (SENSORCAINE) VIAL ONE (07:11)
[2021-05-08] MEDS ORDERED: EPIDURAL (fentaNYL 2 MCG/ML BUPIVA 0.125%)100 ML BAG EPI PRN (07:45)
[2021-05-08] MEDS ORDERED: NALOXONE 0.4 MG/ML 1 ML (NARCAN) VIAL IV PRN ×2 (07:45→09:45)
[2021-05-08] MEDS ORDERED: diphenhydrAMINE 50 MG/ML INJ (BENADRYL) IV PRN (07:45)
[2021-05-08] MEDS ORDERED: ONDANSETRON 4 MG/2 ML (SDV) Z0FRAN IV PRN (07:45)
[2021-05-08] MEDS ORDERED: LACTATED RINGERS 1,000 ML IV SCH (07:45)
[2021-05-08] MEDS ORDERED: LIDOCAINE/EPI 2% 1:200,00 (XYLOCAINE) 10 ML VIAL ONE (08:37)
[2021-05-08] MEDS ORDERED: WITCH HAZEL(TUCKS) 40 EA JAR TOP PRN (09:45)
[2021-05-08] MEDS ORDERED: OXYTOCIN PRE-MIX DRIP 500 ML IV SCH (09:45)
[2021-05-08] MEDS ORDERED: BENZOCAINE/MENTHOL (DERMOPLAST) 56 ML CAN TP PRN (09:45)
[2021-05-08] MEDS ORDERED: HYDROcodone/APAP 5 MG/325 MG (LORTAB) TAB PO PRN (09:45)
[2021-05-08] MEDS ORDERED: TETANUS,DIPTH,PERTUSS P/F (BOOSTRIX) 0.5 ML VIAL IM ONE (09:45)
[2021-05-08] MEDS ORDERED: DIBUCAINE 1% OINTMENT 30 GM TUBE TOP PRN (09:45)
[2021-05-08] MEDS ORDERED: MEASLES,MUMPS,RUBELLA 1 EA INJ SQ ONE (09:45)
--- NOTE | 2021-05-08 09:51 | History & Physical-OB ---
OB - Chief Complaint & HPI Date/Time Date of Admission: Date of Admission: May 07, 2021 at 6:50 pm Date seen by a Provider: May 08, 2021 Time Seen by a Provider: 08:00 Chief Complaint/History OB-Reason for Admission/Chief: Induction of Labor Hx : 3 Hx Para: 1 Expected Date of Delivery: May 13, 2021 Gestational Age in Weeks: 39 Gestational Age in Days: 1 Admission Nurse Assessment Rev: Yes Allergies and Home Medications Allergies Coded Allergies: No Known Drug Allergies (Unverified , 06/30/19) Patient Home Medication List Home Medication List Reviewed: Yes Ferrous Sulfate (Iron) 325 Mg Tablet, 325 MG PO DAILY, (Reported) Entered as Reported by: KAMLA HERNANDEZ on 05/05/21 05 Last Action: Reviewed Nitrofurantoin Monohyd/M-Cryst (Macrobid 100 mg Capsule) 100 Mg Capsule, 1 TAB PO BID Prescribed by: KAMLA HERNANDEZ on 05/05/21541 Last Action: Reviewed Discontinued Medications Hydrocodone/Acetaminophen (Hydrocodone-Acetamin 5-325 mg) 1 Each Tablet, 1 EACH PO Q6H Discontinued Reason: No Longer Taking Prescribed by: BERTHA KENDALL on 09/01/19 1944 [Enbrel] , (Reported) Discontinued Reason: No Longer Taking Entered as Reported by: LAUREN WADE on 09/01/19 184 OB - History Hx of Present Care: Yes Ultrasounds: Normal mid trimester US Obstetrical Complications: None Medical Complications: None Delivery History Adverse Rxn to Tranfusion: No Patient Past Medical History n/a Social History/Family History 2nd Hand Smoke Exposure: No OB - Admission Exam Physical Exam Vitals: Vital Signs 05/07/21 05/08/21 21:40 03:35 Temp 36.8 Pulse 72 Resp 18 B/P (MAP) 119/76 (90) Pulse Ox 100 O2 Delivery Room Air O2 Flow Rate 15.00 HEENT: NCAT Heart: Rhythm Normal Lungs: Clear Abdomen: Gravid Extremities: Normal Reflexes: Normal Cervical Dilatation: 8cm Effacement: 100% Station: -1 Membranes: Intact Heart Rate: 120's Accelerations: Accelerations Present Decelerations: No Decelerations Short Term Variability: Present Metal Painter Variability: Average (6-25) Contractions on Admission: 6-10 Minutes Apart Intensity: Mild Labs Laboratory Tests Test 05/07/21 19:00 05/07/21 21:07 Range/Units Urine Color YELLOW Urine Clarity CLOUDY Urine pH 6.5 5-9 Urine Specific [place] 1.015 L 1.016-1.022 Urine Protein NEGATIVE NEGATIVE Urine Glucose (UA) NEGATIVE NEGATIVE Urine Ketones TRACE H NEGATIVE Urine Nitrite NEGATIVE NEGATIVE Urine Bilirubin NEGATIVE NEGATIVE Urine Urobilinogen 0.2 < = 1.0 MG/DL Urine Leukocyte Esterase 2+ H NEGATIVE Urine RBC (Auto) 1+ H NEGATIVE Urine RBC 2-5 H /HPF Urine WBC 2-5 /HPF Urine Squamous Epithelial Cells 2-5 /HPF Urine Crystals PRESENT H /LPF Urine Uric Acid Crystals FEW H /LPF Urine Amorphous Sediment FEW AILYN URATES H /LPF Urine Bacteria MODERATE H /HPF Urine Casts NONE /LPF Urine Mucus NEGATIVE /LPF Urine Culture Indicated YES White Blood Count 9.9 4.3-11.0 10^3/uL Red Blood Count 3.83 3.80-5.11 10^6/uL Hemoglobin 11.9 11.5-16.0 g/dL Hematocrit 35 35-52 % Mean Corpuscular Volume 92 80-99 fL Mean Corpuscular Hemoglobin 31 25-34 pg Mean Corpuscular Hemoglobin Concent 34 32-36 g/dL Red Cell Distribution Width 12.6 10.0-14.5 % Platelet Count 245 130-400 10^3/uL Mean Platelet Volume 9.7 9.0-12.2 fL Immature Granulocyte % (Auto) 1 % Neutrophils (%) (Auto) 68 42-75 % Lymphocytes (%) (Auto) 21 12-44 % Monocytes (%) (Auto) 10 0-12 % Eosinophils (%) (Auto) 0 0-10 % Basophils (%) (Auto) 0 0-10 % Neutrophils # (Auto) 6.8 1.8-7.8 10^3/uL Lymphocytes # (Auto) 2.0 1.0-4.0 10^3/uL Monocytes # (Auto) 1.0 0.0-1.0 10^3/uL Eosinophils # (Auto) 0.0 0.0-0.3 10^3/uL Basophils # (Auto) 0.0 0.0-0.1 10^3/uL Immature Granulocyte # (Auto) 0.1 0.0-0.1 10^3/uL OB - Assessment/Plan/Diagnosis Assessment Assessment: induction of labor Admission Dx 31 yo @ 39 weeks IOL elective GBS neg Admission Status: Inpatient Order (span 2 midnights) Reason for Inpatient Admission: IOL at 39 weeks Plan Plan: Induction Other Plan Patient given cytotec last night x 1 dose, tachysystole occured there after with an episode of distress, terbutaline was used x 1 dose with resolution in pattern. Active labor ensued after and she progressed to evaluation this morning after epidural to 8-9 cm. STANLEY CALHOUN DO May 08, 2021 9:51 am
--- NOTE | 2021-05-08 09:55 | OB Labor & Delivery Record ---
L&D History Date of Service Date of Service: May 08, 2021 History Expected Date of Delivery: May 13, 2021 Gestational Age in Weeks: 39 Hx : 3 Hx Para: 1 Complications Events: Routine care Operative Indications (Cesarea: N/A-Vaginal Delivery Intrapartal Events: None L&D Stage1 Stage One Onset of Labor - Date: May 08, 2021 Monitors and Tracing Monitor Mode: External Heart Rate: 120 Station: -2 Vital Signs VS - Last 72 Hours, by Label 05/07/21 05/07/21 05/07/21 05/07/21 19:35 19:35 21:10 21:40 Temp 37.1 37.1 Pulse 96 96 87 82 Resp 18 18 18 18 B/P (MAP) 112/77 (89) 134/91 (105) 114/57 (76) Pulse Ox 99 99 100 100 O2 Delivery Room Air Room Air Non Rebreather Non Rebreather O2 Flow Rate 15.00 15.00 05/07/21 05/07/21 05/07/21 05/08/21 22:10 22:40 23:10 03:35 Temp 36.9 36.8 Pulse 102 99 86 72 Resp 18 18 18 18 B/P (MAP) 116/71 (86) 115/72 (86) 107/67 (80) 119/76 (90) Pulse Ox 98 100 99 100 O2 Delivery Room Air Room Air Room Air Room Air Progress/Notes see H and P, AROM performed this AM at evaluation, and she progressed to c omplete and + 2 rapidly L&D Stage2 Stage Two Stage II Date: May 08, 2021 Monitors and Tracing Monitor Mode: External Heart Rate: 120 Monitor Accelerations: Uniform Monitor Decelerations: Variable Bioinformatics Software 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 Condition of Delivery 1 minute Comment: 8 5 minute Comment: 9 Notes Live male weight 7lbs 13 oz Condition of Condition of : Living Exam: No Observed Abnormalities Resuscitation Resuscitation: N/A - Spontaneous Resp L&D Stage3 Stage Three Stage III Date: May 08, 2021 Pictocin Pitocin Administration Comment: 30 mu wide open after delivery of placenta Placenta Delivery Placenta Delivery: Spontaneous Delivery Summary Summary Estimated blood loss (mL): 300 Attending at delivery: Stanley Calhoun DO Condition of Delivery Examined: Cervix Examined, Uterus Explored Post Hemorrhage: No Condition of Mother stable Condition of (s) stable STANLEY CALHOUN DO May 08, 2021 9:55 am
[2021-05-08] MEDS: IBUPROFEN 600 MG (MOTRIN) TAB PO SCH ×2 (10:27→17:00)
[2021-05-08] MEDS ORDERED: CATHETER FLUSH 10 ML SYR IV SCH (14:00)
[2021-05-08] MEDS ORDERED: BENZ78AE5 TP (18:16)
[2021-05-08] MEDS ORDERED: DOCU100C37 PO (18:16)
[2021-05-08] MEDS ORDERED: IBUP-844 PO (18:16)
[2021-05-08] MEDS ORDERED: ACHD5005 PO (18:16)
[2021-05-08] MEDS ORDERED: DIBU30OI TOP (18:16)
[2021-05-08] MEDS ORDERED: FERR325T24 PO (18:16)
--- NOTE | 2021-05-08 18:18 | Discharge Inst-Women's Service ---
Discharge Inst-Women's Serv Depart Medication/Instructions New, Converted or Re-Newed RX: Transmitted to Pharmacy Final Diagnosis PPD 1 NVD Problems Reviewed?: Yes Consults/Follow Up Additional Follow Up: Yes Orders/Referrals Dr. Calhoun in 6 weeks Activity Activity: Activity as Tolerated Driving Instructions: No Driving for 1 Week NO SMOKING: NO SMOKING Nothing Inside Vagina: No Douching, No Somers, No Tampons Diet Discharge Diet: No Restrictions Symptoms to Report to : Bleeding Excessive, Pain Increased, Fever Over 101 Degrees F, Vaginal Bleeding Increase, Questions/Concerns For Any Problems or Questions: Contact Your Physician STANLEY CALHOUN DO May 08, 2021 18:18
[2021-05-09 00:17] VITALS: BP 108/71
[2021-05-09] MEDS: IBUPROFEN 600 MG (MOTRIN) TAB PO SCH ×3 (00:18→11:10)
[2021-05-09] MEDS: DOCUSATE SODIUM 100 MG (COLACE) CAP PO SCH ×2 (00:18→07:52)
[2021-05-09 05:22] VITALS: BP 109/74
[2021-05-09 06:16] LABS: BASOPHILS % (AUTO) 0 % (0-10); EOSINOPHILS % (AUTO) 0 % (0-10); HEMATOCRIT 32 % (35-52); HEMOGLOBIN 10.6 g/dL (11.5-16.0); LYMPHOCYTES # (AUTO) 2.4 10^3/uL (1.0-4.0); LYMPHOCYTES % (AUTO) 18 % (12-44); MEAN CORPUSCULAR HEMOGLOBIN 31 pg (25-34); MEAN CORPUSCULAR HGB CONC 33 g/dL (32-36); MEAN CORPUSCULAR VOLUME 93 fL (80-99); MEAN PLATELET VOLUME 9.5 fL (9.0-12.2); MONOCYTES # (AUTO) 1.1 10^3/uL (0.0-1.0); MONOCYTES % (AUTO) 8 % (0-12); NEUTROPHILS # (AUTO) 9.6 10^3/uL (1.8-7.8); NEUTROPHILS % (AUTO) 73 % (42-75); PLATELET COUNT 205 10^3/uL (130-400); WHITE BLOOD COUNT 13.2 10^3/uL (4.3-11.0)
[2021-05-09] MEDS ORDERED: PRENATAL VITAMIN 1 EA TAB PO SCH (07:00)
--- NOTE | 2021-05-09 07:28 | Postpartum Progress Note ---
Note Note Day # 1 Subjective: Patient is without complaints. Ambulating, voiding. Tolerating a regular diet without nausea or vomiting. Normal lochia. Pain is well controlled with oral pain medications. Objective: Physical Exam: General - Alert and oriented, no apparent distress Abdomen - Soft, appropriately tender to palpation, non-distended, fundus firm at umbilicus Extremities - no edema, negative Humberto's bilaterally Assessment: PPD 1 NVD Plan: Routine care. Encourage breast feeding. Encourage ambulation. Ferrous sulfate supplementation. Plan for discharge today Vitals - Labs Vital Signs - I&O Vital Signs Date Time Temp Pulse Resp B/P (MAP) Pulse Ox O2 Delivery O2 Flow Rate FiO2 05/09/21 05:22 36.6 63 16 109/74 (86) 98 Room Air 05/09/21 00:17 36.8 61 16 108/71 (83) 100 Room Air 05/08/21 19:40 36.4 70 16 127/87 (100) 100 Room Air 05/08/21 16:55 36.5 70 16 109/75 (86) 100 Room Air 05/08/21 11:00 81 18 104/70 (81) Room Air 05/08/21 10:45 79 18 107/69 (82) Room Air 05/08/21 10:30 75 18 110/73 (85) Room Air 05/08/21 10:15 65 18 109/69 (82) Room Air 05/08/21 10:00 73 18 99/64 (76) Room Air 05/08/21 09:45 89 18 98/65 (76) Room Air 05/08/21 09:30 99 18 103/65 (78) Room Air 05/08/21 09:15 36.7 84 18 97/61 (73) Room Air 05/08/21 09:00 92 18 108/68 (81) Room Air 05/08/21 08:45 101 18 111/71 (84) Room Air 05/08/21 08:30 112 18 118/74 (89) 100 Room Air 05/08/21 08:15 96 18 126/83 (97) 100 Room Air 05/08/21 08:07 80 137/83 (101) 100 05/08/21 08:00 36.8 85 18 139/74 (95) 100 Room Air 05/08/21 07:50 78 18 113/78 (90) 100 05/08/21 07:45 75 18 106/71 (83) Room Air 05/08/21 07:40 75 18 118/75 (89) 99 Room Air 05/08/21 07:34 96 18 113/70 (84) 99 05/08/21 07:31 78 18 110/72 (85) 97 05/08/21 07:30 78 18 110/72 (85) Room Air 05/08/21 07:29 81 114/78 (90) 100 Room Air I & O 05/09/21 07:00 Intake Total 3140 ml Balance 3140 ml Labs Laboratory Tests 05/09/21 06:00: White Blood Count 13.2H, Red Blood Count 3.40L, Hemoglobin 10.6L, Hematocrit 32L , Mean Corpuscular Volume 93, Mean Corpuscular Hemoglobin 31, Mean Corpuscular Hemoglobin Concent 33, Red Cell Distribution Width 12.7, Platelet Count 205, Mean Platelet Volume 9.5, Immature Granulocyte % (Auto) 1, Neutrophils (%) ( Auto) 73, Lymphocytes (%) (Auto) 18, Monocytes (%) (Auto) 8, Eosinophils (%) (Auto) 0, Basophils (%) (Auto) 0, Neutrophils # (Auto) 9.6H, Lymphocytes # (Auto) 2.4, Monocytes # (Auto) 1.1H, Eosinophils # (Auto) 0.0, Basophils # (Auto) 0.0, Immature Granulocyte # (Auto) 0.1 Microbiology 05/07/21 Urine Culture - Final, Complete Gram Pos Mixed Bacterial Radha STANLEY CALHOUN DO May 09, 2021 07:28
[2021-05-09 07:45] VITALS: BP 116/71
[2021-05-09] MEDS ORDERED: FERROUS SULF 325 MG (IRON) TAB PO SCH (09:00)
[2021-05-09] MEDS ORDERED: ETAN50CA SQ (11:13)
[2021-05-09 11:50] VITALS: BP 106/71
--- NOTE | 2021-05-09 16:08 | Anesthesia-Regional Post-Op ---
Regional Patient Condition Mental Status: Alert, Oriented x3 Circulation: Same as Pre-Op Headache: Absent Sensation: Full Recovery Motor Block: Absent Post Op Complications Complications None Follow Up Care/Instructions Patient Instructions None needed. Anesthesia/Patient Condition Patient is already discharged to home but she was doing well, no complaints, stable vital signs, no apparent adverse anesthesia problems per nursing staff prior to her discharge. HERI PEPPER DO May 09, 2021 16:08
== END 2021-05-09 12:00 | disposition home or self-care (01) | DRG 807 ==
LOC: LDRP 18:50
PROVIDERS: ADMIT Obstetrics & Gynecology; ATTEND Obstetrics & Gynecology
PROC: 10E0XZZ Delivery of Products of Conception, External Approach (ICD-10-PCS; principal; 2021-05-08)
PROC: 0UQMXZZ Repair Vulva, External Approach (ICD-10-PCS; 2021-05-08)
PROC: 3E0DXGC Introduction of Other Therapeutic Substance into Mouth and Pharynx, External Approach (ICD-10-PCS; 2021-05-08)
DX: O71.82 Other specified trauma to perineum and vulva (principal); Z37.0 Single live birth; Z3A.39 39 weeks gestation of pregnancy
CPT/HCPCS: 36415; 81000; 85025; 86850; 86900; 86901; 87088